=== PATIENT | female | born 2005 | race Caucasian/White ===

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

== ENCOUNTER 2023-09-09 19:29 | Emergency (ER) | payer OTHER ==
[~2023-09-09] VITALS: Ht 160 cm; Wt 62.6 kg
[~2023-09-09 19:29] MED LIST changes: +BACTRIM DS TAB1 EACH PO
[2023-09-09] MEDS ORDERED: METHYLPREDNISOLONE SOD SUCC 125 MG VIAL IV ONE (20:45)
[2023-09-09] MEDS ORDERED: ALBUTEROL SULFATE 3 ML/2.5 MG AMPUL.NEB IH SCH (20:45)
[2023-09-09 21:13] LABS: HEMATOCRIT 37.5 % (36.0-45.00); MEAN CELL VOLUME 86.9 fL (80.00-100.00); MEAN CORPUSCULAR HEMOGLOBIN 30.2 pg (27.00-32.0); MEAN CORPUSCULAR HGB CONC 34.7 g/dl (32.0-36.0); PLATELET COUNT 197 K/uL (150-450); RED BLOOD COUNT 4.32 M/uL (4.00-6.00); RED CELL DISTRIBUTION WIDTH 13.5 % (11.5-14.5)
== END 2023-09-09 22:44 | disposition home or self-care (01) ==
LOC: EMR PED
PROVIDERS: Emergency Medicine
DX: U07.1 COVID-19 (principal); J06.9 Acute upper respiratory infection, unspecified

== ENCOUNTER 2024-04-03 02:13 | Emergency (ER) | payer OTHER ==
[~2024-04-03] VITALS: Ht 157.5 cm; Wt 63.0 kg
[~2024-04-03 02:13] MED LIST changes: +CLARITIN10 M1; +LEVOFLOXACIN750 MG PO; +PROTONIX40 MG PO; +SINGULAIR4 M1
[2024-04-03] MEDS ORDERED: KETOROLAC TROMETHAMINE 30 MG VIAL IV STA (02:57)
[2024-04-03] MEDS ORDERED: DEXAMETHASONE SODIUM PHOSPHATE 4 MG/ML VIAL IV STA (02:58)
[2024-04-03] MEDS ORDERED: PROMETHAZINE HCL 25 MG/ML AMPUL IM STA (02:59)
[2024-04-03] MEDS ORDERED: MEPERIDINE HCL/PF 25 MG/ML VIAL IM STA (02:59)
[2024-04-03] MEDS ORDERED: DEXAMETHASONE SODIUM PHOSPHATE 4 MG/ML VIAL ONE (03:18)
[2024-04-03] MEDS ORDERED: KETOROLAC TROMETHAMINE 30 MG VIAL ONE (03:18)
[2024-04-03] MEDS ORDERED: PROMETHAZINE HCL 25 MG/ML AMPUL ONE (03:18)
[2024-04-03 03:44] LABS: HEMATOCRIT 34.2 % (36.0-45.00); MEAN CELL VOLUME 86.5 fL (80.00-100.00); MEAN CORPUSCULAR HEMOGLOBIN 30.4 pg (27.00-32.0); MEAN CORPUSCULAR HGB CONC 35.1 g/dl (32.0-36.0); PLATELET COUNT 211 K/uL (150-450); RED BLOOD COUNT 3.96 M/uL (4.00-6.00); RED CELL DISTRIBUTION WIDTH 13.7 % (11.5-14.5)
== END 2024-04-03 05:18 | disposition home or self-care (01) ==
LOC: ER 02:15
DX: N94.0 Mittelschmerz (principal)

== ENCOUNTER 2024-08-26 16:41 | Emergency (ER) | payer OTHER ==
[~2024-08-26] VITALS: Ht 154.9 cm; Wt 59.0 kg
[2024-08-26 17:16] VITALS: BP 134/89; O2SAT 100
[2024-08-26] MEDS ORDERED: CEFTRIAXONE SODIUM 1,000 MG VIAL IV ONE (17:30)
[2024-08-26] MEDS ORDERED: 0.9 % SODIUM CHLORIDE 1,000 ML IV SCH (17:30)
[2024-08-26] MEDS ORDERED: KETOROLAC TROMETHAMINE 30 MG VIAL IV ONE ×2 (17:30→21:15)
[2024-08-26] MEDS ORDERED: KETOROLAC TROMETHAMINE 30 MG VIAL ONE ×2 (17:44→21:13)
[2024-08-26] MEDS ORDERED: CEFTRIAXONE SODIUM 1,000 MG VIAL ONE (17:45)
[2024-08-26 17:53] LABS: HEMOGLOBIN 12.7 g/dL (12.0-15.00); MEAN CELL VOLUME 87.8 fL (80.00-100.00); MEAN CORPUSCULAR HEMOGLOBIN 29.3 pg (27.00-32.0); MEAN CORPUSCULAR HGB CONC 33.4 g/dl (32.0-36.0); PLATELET COUNT 238 K/uL (150-450); RED BLOOD COUNT 4.32 M/uL (4.00-6.00); RED CELL DISTRIBUTION WIDTH 13.4 % (11.5-14.5)
[2024-08-26 18:18] LABS: INR 1.06; PARTIAL THROMBOPLASTIN TIME 27.6 SECONDS (22.0-34.0); PROTHROMBIN TIME 11.5 SECONDS (9.0-11.5)
[2024-08-26 18:22] LABS: ALBUMIN 4.1 gm/dL (3.4-5.0); BILIRUBIN TOTAL 0.42 mg/dL (0.3-1.2); CALCIUM 8.9 mg/dL (8.5-10.1); CREATININE SERUM 0.75 mg/dL (0.55-1.02); GFR 97.55; GLOBULINA 3.6 G/DL (2.4-3.5); POTASSIUM 4.19 mEq/L (3.5-5.1); TOTAL PROTEIN 7.7 gm/dL (6.4-8.2)
[2024-08-26 20:56] LABS: PH,URINE 6.5 (5.0-8.0); URINE APPEARANCE Clear; URINE BILIRRUBIN Negative (NEGATIVE); URINE BLOOD Large; URINE COLOR Yellow; URINE GLUCOSE Negative (NEGATIVE); URINE KETONE Trace (NEGATIVE); URINE LEUKOCYTE Negative; URINE NITRATE Negative; URINE PROTEIN 30 (NEGATIVE)
[2024-08-26 20:59] LABS: URINE BACTERIA 3310.8 uL (0.0-1933); URINE CAST 1.76 uL (0.0-1.40); URINE EPITHELIAL CELLS 59.3 uL (0.0-38.8); URINE RBC 705.1 uL (0.0-20.8); URINE WBC 55.5 uL (0.0-23.2)
[2024-08-26] MEDS ORDERED: TAMSULOSIN HCL 0.4 MG CAP PO ONE ×2 (21:08→21:15)
[2024-08-26] MEDS ORDERED: ONDANSETRON HCL 2 MG/ML VIAL ONE ×2 (21:13→21:14)
[2024-08-26] MEDS ORDERED: CEPHALEXIN500 M1 PO (21:13)
[2024-08-26] MEDS ORDERED: KETO10TA2 PO (21:13)
[2024-08-26] MEDS ORDERED: TAMS0.4C PO (21:13)
[2024-08-26] MEDS ORDERED: ONDANSETRON HCL 2 MG/ML VIAL IV ONE (21:15)
== END 2024-08-26 22:09 | disposition home or self-care (01) ==
LOC: ER 16:44
PROVIDERS: General Practice
DX: N20.1 Calculus of ureter (principal); R10.31 Right lower quadrant pain; N20.0 Calculus of kidney
CPT/HCPCS: 36415; 74177; 96365; 99284; J0696; J1885; J2405; Q9965

== ENCOUNTER 2025-05-10 19:30 | Emergency (ER) | payer OTHER ==
[~2025-05-10] VITALS: Ht 157.5 cm; Wt 77.1 kg
[~2025-05-10 19:30] MED LIST changes: +CEPHALEXIN500 M1 PO; +KETO10TA2 PO; +TAMS0.4C PO
[2025-05-10] MEDS ORDERED: LORazepam 2 MG/ML VIAL ONE (19:32)
[2025-05-10] MEDS ORDERED: SODIUM BICARBONATE 50 MEQ in 0.9 % SODIUM CHLORIDE 1,000 ML IV STA (19:52)
[2025-05-10] MEDS ORDERED: LORazepam 2 MG/ML VIAL IV STA (19:52)
[2025-05-10] MEDS ORDERED: SODIUM BICARBONATE 1 MEQ/ML DISP.SYRIN 50ML IV ONE (20:17)
[2025-05-10 20:18] LABS: BASO % 0.4 % (0.1-1.2); EOS # 0.05 (0.04-0.54); EOS % 0.7 % (0.7-7.0); LYMPH # 2.66 (1.18-3.74); LYMPH % 38.1 % (19.3-53.1); MEAN PLATELET VOLUME 9.90 fl (9.4-12.4); MONO # 0.72 (0.24-0.82); MONO % 10.3 % (4.7-12.5); NEUT # 3.52 (1.56-6.13); NEUT % 50.4 % (34.0-71.1); RED CELL DISTRIBUTION WIDTH 12.8 % (11.6-14.4)
[2025-05-10 20:41] LABS: INR 1.0
[2025-05-10 20:47] LABS: ALT/SGPT 18 U/L (12-78); AST/SGOT 11 U/L (15-37); BILIRUBIN TOTAL 0.32 mg/dL (0.3-1.2); BUN CREA RATIO 17 (7.0-25.0); CREATININE SERUM 0.71 mg/dL (0.55-1.02); GFR 102.94; GLOBULINA 3.5 G/DL (2.4-3.5); GLUCOSE FASTING 55 mg/dL (65-100); OSMOLALITY SERUM 284 MOSM/KG (275-295)
[2025-05-10] MEDS ORDERED: DEXTROSE 5 % AND 0.9 % NACL 1,000 ML IV SCH (21:45)
[2025-05-10] MEDS ORDERED: POTASSIUM CHLORIDE 10 MEQ CAPSULE PO STA (21:48)
[2025-05-10] MEDS ORDERED: DEXTROSE 50 % IN WATER 0.5 G/ML DISP.SYRIN IV ONE (22:16)
[2025-05-10] MEDS ORDERED: DEXTROSE 50 % IN WATER 0.5 G/ML VIAL IV ONE (22:30)
[2025-05-10] MEDS ORDERED: 0.9 % SODIUM CHLORIDE 1,000 ML IV STA (22:34)
[2025-05-11 00:07] LABS: URINE APPEARANCE Clear; URINE BILIRRUBIN Negative (NEGATIVE); URINE BLOOD Large; URINE COLOR Orange; URINE GLUCOSE Negative (NEGATIVE); URINE KETONE Negative (NEGATIVE); URINE LEUKOCYTE Small; URINE NITRATE Negative; URINE PROTEIN 30 (NEGATIVE); URINE UROBILINOGEN 0.2 E.U./dl
[2025-05-11 00:11] LABS: URINE BACTERIA 2461.1 uL (0.0-1933); URINE EPITHELIAL CELLS 22.3 uL (0.0-38.8); URINE RBC 1098.6 uL (0.0-20.8); URINE WBC 172.4 uL (0.0-23.2)
[2025-05-11 01:04] LABS: COCAINE NEGATIVE (NEGATIVE); METHADONE NEGATIVE (NEGATIVE); OPIATES NEGATIVE (NEGATIVE); THC ( Cannabinoids) POSITIVE (NEGATIVE)
[2025-05-11 01:26] LABS: URINE CAST 0.29 uL (0.0-1.40)
[2025-05-11] MEDS ORDERED: CEFTRIAXONE SODIUM 1,000 MG VIAL IV STA (01:55)
[2025-05-11] MEDS ORDERED: CEFTRIAXONE SODIUM 1,000 MG VIAL ONE (02:20)
[2025-05-11] MEDS ORDERED: HYDROXYZINE HCL25 MG PO (06:25)
== END 2025-05-11 08:14 ==
LOC: ER 19:30
PROVIDERS: Physician Assistant Medical
DX: F41.1 Generalized anxiety disorder (principal); R00.0 Tachycardia, unspecified

== ENCOUNTER 2025-06-22 20:06 | Emergency (ER) | payer OTHER ==
[~2025-06-22] VITALS: Ht 154.9 cm; Wt 64.9 kg
[~2025-06-22 20:06] MED LIST changes: +HYDROXYZINE HCL25 MG PO
[2025-06-22] MEDS ORDERED: 0.9 % SODIUM CHLORIDE 1,000 ML IV ONE (23:45)
[2025-06-22] MEDS ORDERED: KETOROLAC TROMETHAMINE 30 MG VIAL IV STA (23:45)
[2025-06-22] MEDS ORDERED: PROMETHAZINE HCL 50 MG/ML AMPUL IM STA (23:46)
[2025-06-23] MEDS ORDERED: PROMETHAZINE HCL 50 MG/ML AMPUL IM ONE (00:11)
[2025-06-23] MEDS ORDERED: KETOROLAC TROMETHAMINE 30 MG VIAL ONE (00:11)
[2025-06-23] MEDS ORDERED: BARIUM SULFATE 450 ML ORAL.SUSP PO ONE (00:19)
[2025-06-23] MEDS ORDERED: DIATRIZOATE MEGLUMINE, SODIUM 30 ML BOTTLE ONE (00:33)
[2025-06-23 01:05] LABS: BASO % 0.4 % (0.1-1.2); EOS # 0.10 (0.04-0.54); EOS % 1.3 % (0.7-7.0); LYMPH # 3.14 (1.18-3.74); LYMPH % 40.4 % (19.3-53.1); MEAN PLATELET VOLUME 9.90 fl (9.4-12.4); MONO # 0.74 (0.24-0.82); MONO % 9.5 % (4.7-12.5); NEUT # 3.74 (1.56-6.13); NEUT % 48.1 % (34.0-71.1); RED CELL DISTRIBUTION WIDTH 12.1 % (11.6-14.4)
[2025-06-23 01:20] LABS: INR 1.02
[2025-06-23 02:10] LABS: ALT/SGPT 17 U/L (12-78); AST/SGOT 5 U/L (15-37); BILIRUBIN TOTAL 0.39 mg/dL (0.3-1.2); BUN CREA RATIO 23 (7.0-25.0); CREATININE SERUM 0.57 mg/dL (0.55-1.02); GFR 132.63; GLOBULINA 3.7 G/DL (2.4-3.5); GLUCOSE FASTING 87 mg/dL (65-100); OSMOLALITY SERUM 286 MOSM/KG (275-295)
[2025-06-23 02:12] LABS: HCG QUANTITATIVE < 1 mUI/mL (1-3)
[2025-06-23 10:45] LABS: URINE APPEARANCE Clear; URINE BACTERIA 2372.6 uL (0.0-1933); URINE BILIRRUBIN Negative (NEGATIVE); URINE BLOOD Negative; URINE COLOR Yellow; URINE EPITHELIAL CELLS 55.8 uL (0.0-38.8); URINE GLUCOSE Negative (NEGATIVE); URINE KETONE Trace (NEGATIVE); URINE LEUKOCYTE Trace; URINE NITRATE Negative; URINE PROTEIN Negative (NEGATIVE); URINE RBC 22.8 uL (0.0-20.8); URINE UROBILINOGEN 0.2 E.U./dl; URINE WBC 25.4 uL (0.0-23.2)
[2025-06-23 10:46] LABS: URINE CAST 0.14 uL (0.0-1.40)
[2025-06-23] MEDS ORDERED: CIPRO500 MG PO (11:42)
[2025-06-23] MEDS ORDERED: NAPROXEN500 MG PO (11:42)
[2025-06-23] MEDS ORDERED: TAMS0.4C PO (11:42)
== END 2025-06-23 12:59 | disposition home or self-care (01) ==
LOC: ER 20:06
PROVIDERS: General Practice
DX: N13.2 Hydronephrosis with renal and ureteral calculous obstruction (principal); N80.8 Other endometriosis